=== PATIENT | female | born 1995 | race Caucasian/White ===

== ENCOUNTER 2016-05-18 01:18 | Emergency (ER) | payer OTHER ==
[~2016-05-18] VITALS: Ht 175.3 cm; Wt 83.3 kg
[~2016-05-18 01:18] MED LIST: CITALOPRAM HBR10 MG PO; NAPROSYN500 MG PO; VALIUM2 MG PO
[2016-05-18] MEDS ORDERED: TOPIRAMATE50 MG PO (02:37)
[2016-05-18] MEDS ORDERED: CITALOPRAM HBR20 MG PO (02:37)
[2016-05-18 03:31] LABS: ADD MEDTOX COMMENT Y; AMPHETAMINE NEGATIVE (500 ng/mL); BARBITURATES NEGATIVE (200 ng/mL); BENZODIAZEPINES PRESUMPTIVE POSITIVE (150 ng/mL); COCAINE NEGATIVE (150 ng/mL); INTERNAL CONTROLS VALID? YES; METHADONE NEGATIVE (200 ng/mL); METHAMPHETAMINE NEGATIVE (500 ng/mL); OPIATES (MORPHINE) NEGATIVE (100 ng/mL); OXYCODONE NEGATIVE (100 ng/mL); PHENCYCLIDINE NEGATIVE (25 ng/mL); PROPOXYPHENE NEGATIVE (300 ng/mL); THC CANNABINOIDS PRESUMPTIVE POSITIVE (50 ng/mL); TRICYCLIC ANTIDEPRESSANTS NEGATIVE (300 ng/mL)
[2016-05-18 03:47] LABS: SERUM ETHYL ALCOHOL < 10 mg/dL
[2016-05-18 04:10] LABS: BENZODIAZEPINES QUANT VALUE 0 NG/ML
[2016-05-18 04:54] LABS: BENZODIAZEPINES, URINE SCREEN Negative (200 ng/mL)
[2016-05-18 07:00] LABS: QUANTITATIVE HCG < 4.0 MIU/ML
[2016-05-18 08:21] VITALS: BP 108/77
[2016-05-18 08:51] LABS: TREPONEMA ANTIBODY NEGATIVE (NEGATIVE)
[2016-05-19 12:58] LABS: CHLAMYDIA TRACHOMATIS POSITIVE; NEISSERIA GONORRHOEAE NEGATIVE
== END 2016-05-18 08:24 | disposition home or self-care (01) ==
LOC: EME 01:18
PROVIDERS: Emergency Medicine
DX: T76.21XA Adult sexual abuse, suspected, initial encounter (principal); F19.10 Other psychoactive substance abuse, uncomplicated
CPT/HCPCS: 84702; 84999; 86780; 87210; 87491; 87591; 99281; 99285; G0480; J0696